=== PATIENT | female | born 1990 | race Caucasian/White ===

== ENCOUNTER 2017-05-24 17:06 | Emergency (ER) | payer OTHER ==
[2017-05-24 18:13] VITALS: BP 135/75
--- NOTE | 2017-05-24 18:43 | UC ---
UC General HPI - HPI Summary HPI Summary: on monday, began with head congestion and now sore throat along with cough and chest congestion. no sob, fever or hx asthma. - History of Current Complaint Hx Obtained From: Patient Hx Last Menstrual Period: 04/20/17 Onset/Duration: Gradual Onset Timing: Constant Pain Intensity: 0 Aggravating: nothing Alleviating: nothing Associated Signs & Symptoms: Positive: Cough <Melissa Alvarez - Last Filed: 05/24/17 18:38> <Mariah Ortez - Last Filed: 05/24/17 19:15> - History of Current Complaint Chief Complaint: UCGeneralIllness Stated Complaint: RESPIRATORY Time Seen by Provider: 05/24/17 18:32 - Allergy/Home Medications Allergies/Adverse Reactions: Allergies Allergy/AdvReac Type Severity Reaction Status Date / Time bupropion [From Wellbutrin] AdvReac migraines Verified 05/24/17 18:14 PMH/Surg Hx/FS Hx/Imm Hx Previously Healthy: Yes - Surgical History Surgical History: Yes Surgery Procedure, Year, and Place: laproscopic exploratory surgery to r/o endometriosis - Social History Occupation: Employed Full-time Alcohol Use: Rare Substance Use Type: None Smoking Status (MU): Light Every Day Tobacco Smoker - Immunization History Vaccination Up to Date: Yes <Melissa Alvarez - Last Filed: 05/24/17 18:38> Review of Systems Constitutional: Negative Skin: Negative Eyes: Negative ENT: Sore Throat, Nasal Discharge, Sinus Congestion Respiratory: Cough Cardiovascular: Negative Gastrointestinal: Negative Genitourinary: Negative Motor: Negative Neurovascular: Negative Musculoskeletal: Negative Neurological: Negative Psychological: Negative Is Patient Immunocompromised?: No All Other Systems Reviewed And Are Negative: Yes <Melissa Alvarez - Last Filed: 05/24/17 18:38> Physical Exam Triage Information Reviewed: Yes Appearance: Well-Appearing Vital Signs: Initial Vital Signs Temp 97.9 F 05/24/17 18:09 Pulse 85 05/24/17 18:09 Resp 20 05/24/17 18:09 BP 135/75 05/24/17 18:09 Pulse Ox 100 05/24/17 18:09 Vital Signs Reviewed: Yes Eyes: Positive: Conjunctiva Clear ENT: Positive: Pharyngeal erythema, Nasal congestion, TMs normal, Uvula midline. Negative: Tonsillar swelling, Tonsillar exudate, Trismus, Muffled voice, Sinus tenderness Neck: Positive: Supple, Nontender, No Lymphadenopathy Respiratory: Positive: Lungs clear, Normal breath sounds Cardiovascular: Positive: RRR, No Murmur Abdomen Description: Positive: Nontender, No Organomegaly, Soft Bowel Sounds: Positive: Present Musculoskeletal: Positive: ROM Intact Neurological: Positive: Alert Psychological: Positive: Age Appropriate Behavior Skin Exam: Normal <Melissa Alvarez - Last Filed: 05/24/17 18:38> Vital Signs: Initial Vital Signs Temp 97.9 F 05/24/17 18:09 Pulse 85 05/24/17 18:09 Resp 20 05/24/17 18:09 BP 135/75 05/24/17 18:09 Pulse Ox 100 05/24/17 18:09 <Mariah Ortez - Last Filed: 05/24/17 19:15> Diagnostics - Laboratory Diagnostic Studies Completed/Ordered: rapid strep=NEG <Melissa Alvarez - Last Filed: 05/24/17 18:38> Course/Dx - Course Course Of Treatment: rapis strep=neg. tx supportive - Differential Dx - Multi-Symptom Provider Diagnoses: URI, sore throat, bronchitis <Melissa Alvarez - Last Filed: 05/24/17 18:38> Discharge - Sign-Out/Discharge Documenting (check all that apply): Discharge - Billing Disposition and Condition Condition: STABLE Disposition: HOME <Melissa Alvarez - Last Filed: 05/24/17 18:38> - Billing Disposition and Condition Condition: STABLE Disposition: HOME <Mariah Ortez - Last Filed: 05/24/17 19:15> - Discharge Plan Condition: Stable Disposition: HOME Prescriptions: Albuterol HFA INHALER* [Ventolin HFA Inhaler*] 2 puff INH Q6H #1 mdi Patient Education Materials: Upper Respiratory Infection (ED), Acute Bronchitis (ED) Forms: *Work Release Referrals: Malini Mauricio MD [Primary Care Provider] - 5 Days Attestation Statement User Type: Provider - I was available for consult. This patient was seen by the [facility]. The patient was not presented to, seen by, or examined by me. -Shonna <Mariah Ortez - Last Filed: 05/24/17 19:15>
== END 2017-05-24 19:09 | disposition home or self-care (01) ==
LOC: UCCORT 17:06
DX: J06.9 Acute upper respiratory infection, unspecified (principal); J40 Bronchitis, not specified as acute or chronic; J02.9 Acute pharyngitis, unspecified; F17.200 Nicotine dependence, unspecified, uncomplicated; Z88.8 Allergy status to other drugs, medicaments and biological substances
CPT/HCPCS: 87651; 99212; G0463

== ENCOUNTER 2017-09-21 15:03 | Emergency (ER) | payer OTHER ==
[2017-09-21 15:16] VITALS: BP 115/78
--- NOTE | 2017-09-21 15:29 | UC ---
Laceration HPI - HPI Summary HPI Summary: lacerated left hand second digit with a freshly sharpened knife about 3.5 hours ago; across proximal joint, very clean cut. Tetanus is up to date. - History Of Current Complaint Chief Complaint: UCLaceration Stated Complaint: FOREFINGER LACERATION (L) Time Seen by Provider: 09/21/17 15:20 Hx Obtained From: Patient Hx Last Menstrual Period: 08/16/17 Mechanism Of Injury: Sharp Trauma Onset/Duration: Sudden Onset Pain Intensity: 3 Aggravating Factors: Movement Related History: Dominant Hand Right - Allergies/Home Medications Allergies/Adverse Reactions: Allergies Allergy/AdvReac Type Severity Reaction Status Date / Time bupropion [From Wellbutrin] AdvReac migraines Verified 09/21/17 15:17 Home Medications: Home Medications lamoTRIgine TAB(*) [LaMICtal TAB(*)] 200 mg PO DAILY 09/21/17 [History Confirmed 09/21/17] PMH/Surg Hx/FS Hx/Imm Hx Previously Healthy: Yes Psychological History: Bipolar Disorder - on lamotrigine x 4 months or so - Surgical History Surgical History: Yes Surgery Procedure, Year, and Place: laproscopic exploratory surgery to r/o endometriosis - Family History Known Family History: Positive: Cardiac Disease - prevalent on paternal side. - Social History Occupation: Employed Full-time Lives: With Family Alcohol Use: None Substance Use Type: None Smoking Status (MU): Light Every Day Tobacco Smoker - Immunization History Vaccination Up to Date: Yes Review of Systems Constitutional: Negative Skin: Other - laceration Eyes: Negative ENT: Negative Respiratory: Negative Cardiovascular: Negative Gastrointestinal: Negative Genitourinary: Negative Motor: Negative Neurovascular: Negative Musculoskeletal: Negative Neurological: Negative Psychological: Negative All Other Systems Reviewed And Are Negative: Yes Physical Exam Triage Information Reviewed: Yes Appearance: Well-Appearing Vital Signs: Initial Vital Signs Temp 98.2 F 09/21/17 15:10 Pulse 73 09/21/17 15:10 Resp 16 09/21/17 15:10 BP 115/78 09/21/17 15:10 Pulse Ox 100 09/21/17 15:10 Respiratory Exam: Normal Cardiovascular Exam: Normal Psychological Exam: Normal Skin Exam: Other - laceration left hand across proximal IP joint, dorsal surface. 12mm Laceration Repair - Laceration Repair 1 Description: Linear Laceration Size After Repair: Length (cm) - 1.2 Modified For Repair: No Cleansing Completed Via Routine Prep: Yes Irrigation With Pressure Irrigation Device: Yes Closure Material: Skin Adhesive, SteriStrips Laceration Course/Dx - Course/Dx Course Of Treatment: adhesive used with splinting to maintain extension. - Differential Dx - Laceration/Wound Differental Diagnoses: Laceration Provider Diagnoses: laceration left hand second digit over PIP joint. Discharge - Sign-Out/Discharge Documenting (check all that apply): Patient Departure - Discharge Plan Condition: Stable Disposition: HOME Patient Education Materials: Finger Laceration (ED), Skin Adhesive Care (ED) Forms: *Work Release Referrals: Malini Mauricio MD [Primary Care Provider] - Additional Instructions: The wound will heal best if you keep the finger splinted in extension for 48 to 72 hours. As discussed, remove the steristrips as they begin to curl, peeling from the base of the finger towards the nail - Billing Disposition and Condition Condition: STABLE Disposition: Home
== END 2017-09-21 16:01 | disposition home or self-care (01) ==
LOC: UCCORT 15:03
DX: S61.412A Laceration without foreign body of left hand, initial encounter (principal); Z88.8 Allergy status to other drugs, medicaments and biological substances; F31.9 Bipolar disorder, unspecified; F17.210 Nicotine dependence, cigarettes, uncomplicated; W26.0XXA Contact with knife, initial encounter; Y93.9 Activity, unspecified; Y92.9 Unspecified place or not applicable
CPT/HCPCS: 12001; 99211; G0463